=== PATIENT | male | born 1970 | race Caucasian/White ===

== ENCOUNTER 2019-08-10 10:31 | Inpatient (IN) | payer OTHER ==
[2019-08-10] VITALS (159 sets, daily range): BP systolic 121–136; BP diastolic 90–91; PULSE 55–81; TEMP 97.6; O2SAT 94–100
[~2019-08-10] VITALS: Ht 180.3 cm; Wt 136.4 kg
[~2019-08-10 10:31] MED LIST: ALTACE 1.25MG1.25 MG PO; ASPIRIN 81M81 MG/TA2 PO; EFFIENT10 MG PO; LEVAQUIN 750MG750 M1 PO; LIPITOR 40MG TA40 MG PO; LOPRESSOR 225 MG/TAB PO; MOTRIN 800800 MG/TAB PO; NITROSTAT0.4 MG/TAB SL; NO HOME MEDICATIONS; NORCO 325 MG-7.1 TAB PO
[2019-08-10 11:01] LABS: BASO # 0.1 (0.0-0.2); EOS # 0.3 (0.0-0.7); EOS % 3.2 % (0-4.0); GRAN # 5.4 (1.4-6.5); GRAN % 59.1 % (42.2-75.2); HEMATOCRIT 46.8 % (42.0-52.0); HEMOGLOBIN 15.5 g/dl (13.5-18.0); LYMPH # 2.5 (1.2-3.4); LYMPH % 27.8 % (20.0-51.0); MEAN CELL VOLUME 85 fl (80.0-100.0); MEAN CORPUSCULAR HEMOGLOBIN 28 pg (27.0-31.0); MEAN CORPUSCULAR HGB CONC 33 g/dl (33.0-37.0); MEAN PLATELET VOLUME 9.9 fl (7.4-10.4); MONO # 0.8 (0.1-0.6); MONO % 8.5 % (1.7-9.3); PLATELET COUNT 275 K/mm3 (130-400); RED BLOOD COUNT 5.48 M/mm3 (4.20-5.60); REDCELL DISTRIBUTION WIDTH-CV 12.4 % (11.5-14.5)
[2019-08-10 11:08] LABS: PROTHROMBIN TIME 11.3 SECONDS (9.7-12.8)
[2019-08-10 11:10] LABS: PARTIAL THROMBOPLASTIN TIME 32.9 SECONDS (26.0-37.0)
[2019-08-10 11:11] LABS: ALANINE AMINOTRANSFERASE 43 U/L (21-72); ALBUMIN 4.3 gm/dL (3.5-5.0); ALKALINE PHOSPHATASE 129 U/L (50-136); ANION GAP 10 mmol/L (7-16); AST,SGOT 29 U/L (15-37); BILIRUBIN,TOTAL 0.5 mg/dL (0.0-1.0); BLOOD UREA NITROGEN 13 mg/dL (9-20); CALCIUM 9.4 mg/dL (8.4-10.2); CARBON DIOXIDE 23 mmol/L (22-30); CHLORIDE 107 mmol/L (98-107); CREATININE, serum 1.16 (0.66-1.25); GLUCOSE 140 mg/dL (74-106); LIPASE 799 U/L (23-300); SODIUM 140 mmol/L (137-145)
[2019-08-10] MEDS ORDERED: GLUCOPHAGE1000 MG PO (11:11)
[2019-08-10 11:23] LABS: TROPONIN-I < 0.012 ng/mL (0.000-0.035)
--- NOTE | 2019-08-10 13:40 | NUR ---
recieved report from MELIDA parmar. for admit of pt to ICU.
[2019-08-10 17:24] LABS: TROPONIN-I 6 HR POST INITIAL 0.988 ng/mL (0.000-0.034)
--- NOTE | 2019-08-10 18:49 | NUR ---
RECIEVED REPORT FROM MELIDA MOONEY TO TRANSFER PATEINT FROM ED TO ICU.
--- NOTE | 2019-08-10 19:50 | NUR ---
Report given to Bobo MONTEZ. Lab in with patient at this time. Medications verified.
[2019-08-11] VITALS (744 sets, daily range): BP systolic 117–151; BP diastolic 82–923; PULSE 64–92; TEMP 97.8–98.4; O2SAT 83–100
[2019-08-11 04:10] LABS: BASO # 0.1 (0.0-0.2); BASO % 0.8 % (0.0-2.0); EOS # 0.3 (0.0-0.7); EOS % 2.8 % (0-4.0); GRAN # 6.4 (1.4-6.5); GRAN % 61.8 % (42.2-75.2); HEMOGLOBIN 14.1 g/dl (13.5-18.0); LYMPH # 2.7 (1.2-3.4); LYMPH % 26.6 % (20.0-51.0); MEAN CELL VOLUME 85 fl (80.0-100.0); MEAN CORPUSCULAR HEMOGLOBIN 29 pg (27.0-31.0); MEAN CORPUSCULAR HGB CONC 34 g/dl (33.0-37.0); MEAN PLATELET VOLUME 9.7 fl (7.4-10.4); MONO # 0.8 (0.1-0.6); MONO % 7.7 % (1.7-9.3); PLATELET COUNT 246 K/mm3 (130-400); RED BLOOD COUNT 4.92 M/mm3 (4.20-5.60); REDCELL DISTRIBUTION WIDTH-CV 12.7 % (11.5-14.5)
[2019-08-11 04:15] LABS: PROTHROMBIN TIME 11.9 SECONDS (9.7-12.8)
[2019-08-11 04:18] LABS: PARTIAL THROMBOPLASTIN TIME 38.4 SECONDS (26.0-37.0)
[2019-08-11 04:22] LABS: CALCIUM 8.8 mg/dL (8.4-10.2); CHOLESTEROL RISK RATIO 4.6; CREATININE, serum 0.98 (0.66-1.25); POTASSIUM 3.8 mmol/L (3.4-5.0)
[2019-08-11 04:33] LABS: TROPONIN-I 0.556 ng/mL (0.000-0.035)
--- NOTE | 2019-08-11 09:52 | NUR ---
Discontinue verbal order Dr Zeng
--- NOTE | 2019-08-11 09:53 | NUR ---
discontinued per verbal order Dr Davis
--- NOTE | 2019-08-11 10:34 | NUR ---
Initial visit; Patient thanked Environmental [employer] Faculty Member for looking in on him and offering God's blessings.
--- NOTE | 2019-08-11 11:24 | NUR ---
PATIENT AWAKE ALERT DENIES DISCOMFORT AT HTIS TIME RESTING
--- NOTE | 2019-08-11 14:36 | NUR ---
ASSET AVAILABILITY LEADER student met with the patient to discuss a discharge plan. The patient lives in [facility] but has a [place] address with his , Marjorie Banegas and their son. The patient has a CPAP but reports he does not use it due to the way he sleeps. The patient's PCP is Dr. Tamez and patient receives medications from [facility] pharmacy with no difficulties. The patient does not have advanced directives in the EMR and was not interested in a DPOA-HC form. The patient drove himself to the hosptial and plans on driving himself home. There are no additonal needs at this time.
--- NOTE | 2019-08-11 14:54 | NUR ---
1445 PATIENT WENT TO CARDIAC RRTS
--- NOTE | 2019-08-11 15:07 | NUR ---
SEE MERGE DOCUMENTATION FOR MEDICATION ADMINISTRATION TIMES AND INTRA/POST PROCEDURE SEDATION ASSESSMENTS.
[2019-08-12] VITALS (370 sets, daily range): BP systolic 115–128; BP diastolic 79–92; PULSE 47–54; TEMP 97.8–98.1; O2SAT 89–100
[2019-08-12 06:27] LABS: BASO # 0.1 (0.0-0.2); BASO % 0.5 % (0.0-2.0); EOS # 0.3 (0.0-0.7); EOS % 2.8 % (0-4.0); GRAN # 5.9 (1.4-6.5); GRAN % 64.6 % (42.2-75.2); HEMATOCRIT 44.4 % (42.0-52.0); HEMOGLOBIN 14.6 g/dl (13.5-18.0); LYMPH # 2.2 (1.2-3.4); LYMPH % 23.5 % (20.0-51.0); MEAN CELL VOLUME 86 fl (80.0-100.0); MEAN CORPUSCULAR HEMOGLOBIN 28 pg (27.0-31.0); MEAN CORPUSCULAR HGB CONC 33 g/dl (33.0-37.0); MEAN PLATELET VOLUME 9.8 fl (7.4-10.4); MONO # 0.8 (0.1-0.6); MONO % 8.3 % (1.7-9.3); PLATELET COUNT 254 K/mm3 (130-400); RED BLOOD COUNT 5.17 M/mm3 (4.20-5.60); REDCELL DISTRIBUTION WIDTH-CV 12.6 % (11.5-14.5)
[2019-08-12 06:54] LABS: CALCIUM 9.3 mg/dL (8.4-10.2); CREATININE, serum 1.12 (0.66-1.25)
--- NOTE | 2019-08-12 07:20 | NUR ---
Report received from Bobo MONTEZ and care resumed.
[2019-08-12] MEDS ORDERED: LIPITOR 80MG80 MG PO (08:46)
[2019-08-12] MEDS ORDERED: NORVASC 5MG5 MG/TAB PO (09:25)
--- NOTE | 2019-08-12 10:25 | NUR ---
Pt given discharge instructions and taken out to private car for discharge at this time.
== END 2019-08-12 10:25 | disposition home or self-care (01) | DRG 246 ==
LOC: COL.ER 10:31 → ICU 12:22
PROVIDERS: Emergency Medicine; Internal Medicine; Physician Assistant; ADMIT Student in an Organized Health Care Education/Training Program
PROC: 027034Z Dilation of Coronary Artery, One Artery with Drug-eluting Intraluminal Device, Percutaneous Approach (ICD-10-PCS; principal; 2019-08-11)
PROC: 02703ZZ Dilation of Coronary Artery, One Artery, Percutaneous Approach (ICD-10-PCS; 2019-08-11)
PROC: 4A023N7 Measurement of Cardiac Sampling and Pressure, Left Heart, Percutaneous Approach (ICD-10-PCS; 2019-08-11)
PROC: B2111ZZ Fluoroscopy of Multiple Coronary Arteries using Low Osmolar Contrast (ICD-10-PCS; 2019-08-11)
DX: I25.110 Atherosclerotic heart disease of native coronary artery with unstable angina pectoris (principal); I21.4 Non-ST elevation (NSTEMI) myocardial infarction; E11.9 Type 2 diabetes mellitus without complications; E78.5 Hyperlipidemia, unspecified; I25.5 Ischemic cardiomyopathy; I10 Essential (primary) hypertension; Z79.84 Long term (current) use of oral hypoglycemic drugs; Z95.5 Presence of coronary angioplasty implant and graft; Z87.891 Personal history of nicotine dependence
CPT/HCPCS: 99232-AI; 99239; C9600; J1644; J2250; J3010; J7030; Q9967